=== PATIENT | male | born 1965 | race Caucasian/White ===

== ENCOUNTER → 2018-07-26 | Outpatient (CLI) | payer OTHER ==
[~2018-07-26] MED LIST: REGADENOSON 0.4 MG/5 ML DISP.SYRIN. IV ONE
--- NOTE | 2018-07-28 10:13 | PCVCIMAG ---
APPROVED REPORT Imaging Protocol: Rest Tc-99m/Stress Tc-99m 1 day Study performed: 07/26/2018 09:36:16 Indication: Chest Pain Patient Location: Out-Patient Stress Nurse: Shannon Cotter RN NM Tech:Ron Vega NMDELB Ht: 5 ft 11 in Wt: 225 lbs BSA: 2.22 m2 HR: 60 bpm BP: 188/92 mmHg BMI: 31.3 Rhythm: NSR Medical History Medical History: Age, HTN, Family Hx of CAD Medications: Edarbycior, Bystolic Allergies: PCN, Codeine Resting Data Rest SPECT myocardial perfusion imaging was performed in supine position 45 minutes following the intravenous injection of 11.3 mCi of Tc-99m Sestamibi. Time of rest injection: 929 Date: 07/26/2018 Administration Route: IV Administration Site: Right Hand Pharmacologic Stress Pharmacologic stress test was performed by injecting Regadenoson 0.4 mg IV push over 10-15 seconds immediately followed by the intravenous injection of 33.5 mCi of Tc-99m Sestamibi. Time of stress injection: 1044 Date: 07/26/2018 Administration Route: IV Administration Site: Right Hand Gated Stress SPECT was performed 45 minutes after stress injection. The images were gated to evaluate regional wall motion and calculate left ventricular ejection fraction. Stress Test Details Stress Test: Pharmacologic stress was paired with low level exercise. HRMax Heart Rate (APMHR): 167 bpm Resting HR: 60 bpmTarget HR (85% APMHR): 141 bpm Max HR Achieved: 116 bpm % of APMHR: 69 Recovery HR: 80 bpm BP Resting BP: 188/92 mmHg Recovery BP: 188/93 mmHg ECG Resting ECG: NSR Stress ECG: ST, PVC, PAC Arrhythmia: PAC's, PVC's Recovery ECG: SR, PVC, PAC Clinical Reason for Termination: Completed protocol Stress Symptoms: Abdominal discomfort, Chest pain, Nausea, Headache, Leg fatigue, Lightheaded Symptoms resolved with caffeine. Stress ECG Conclusion 1. Adequate response to intravenous Lexiscan 2. Inadequate heart rate for ECG diagnosis Study Data Post stress, the left ventricular ejection was 52%.. SSS: 3 SRS: 8 SDS: 0 TID = 0.95. Perfusion There is a large area of moderately reduced uptake in the entire segment of the inferior wall which is seen on the stress images as well as the resting images. This area thickens and moves normally and is most consistent with attenuation artifact. Wall Motion Normal left ventricular wall motion. Nuclear Conclusion ECG Findings: non-diagnostic Clinical Findings: negative for ischemia Nuclear Findings: negative for ischemia Exercise Capacity: not assessed Left Ventricular Function: normal 1. Low risk study Interpreted by: Eunice Koo MD Electronically Approved: 07/28/2018 10:12:12 <Conclusion> 1. Adequate response to intravenous Lexiscan 2. Inadequate heart rate for ECG diagnosis
== END | disposition home or self-care (01) ==
LOC: PCVCIMAG 09:08
PROVIDERS: ATTEND Internal Medicine
DX: I10 Essential (primary) hypertension (principal); R07.9 Chest pain, unspecified; Z82.49 Family history of ischemic heart disease and other diseases of the circulatory system
CPT/HCPCS: 78452; 93017; A9500; J2785